=== PATIENT | female | born 1990 | race Caucasian/White ===

== ENCOUNTER 2017-02-14 16:07 | Emergency (ER) | payer OTHER ==
[2017-02-14 16:12] VITALS: BP 119/78; PULSE 58; RESP 16; TEMP 97.7; O2SAT 97
--- NOTE | 2017-02-14 16:47 | EDPHY ---
H & P Stated Complaint: Fell while rock clinmbing, laceration to back of head. Time Seen by Provider: 02/14/17 16:46 HPI/ROS: HPI: This is a 26-year-old female presents with Chief Complaint: Fell while rock climbing, laceration to back of head. Location: back of head Quality: Cut Duration: 3-5 hours ago Signs and Symptoms: No LOC, no neck pain, No bleeding, no radiation, no numbness, no weakness, no tingling, no incontinence, no decreased range of motion Timing: Sudden Severity: [id number] Context: Patient was rock climbing this morning around 9:30 a.m. and slipped on a rock and fell approximately 10 feet onto the ground hitting her head on the dirt. She was tethered and the rope broke her fall but was slack. She denies LOC/neck pain/chest pain/abdominal pain/dizziness/nausea/vomiting. Tetanus up-to-date per patient report. She drove herself home from a rock climbing and then realized that she probably needed stitches so then drove herself to the emergency room. Modifying Factors: None Comment: ROS: see HPI Constitutional: No fever, no chills, no weight loss Eyes: No blurred vision Respiratory: No shortness of breath, no cough Cardiovascular: No chest pain Gastrointestinal: No nausea, no vomiting no diarrhea Genitourinary: No dysuria Extremities: No myalgias Neurologic: No weakness, no numbness Skin: No rashes Hematologic: No bruising, no bleeding MEDICAL/SURGICAL/SOCIAL HISTORY: Medical history: Generally healthy. Does not take any regular medications. Surgical history: Denies Social history: Employed CONSTITUTIONAL: Well-developed well-nourished adult white female, awake and alert, no obvious distress HEENT: 1.5 cm superficial linear simple laceration occipital scalp area, normocephalic, PERRL, EOMI. no globe entrapment, no raccoon eyes. no [place] signs.Tympanic membranes clear. No tympanic membrane rupture. Nares patent; no septal hematoma. Oropharynx clear, no exudate and moist pink mucosa. No malocclusion. no dental trauma. Airway patent. No lymphadenopathy. NECK: supple, no midline tenderness, flexion 45 degrees, extension 45 degrees, right and left lateral flexion 45 degrees. No meningismus. Cardiovascular: Normal S1/S2, regular rate, regular rhythm, without murmur rub or gallop. PULMONARY/CHEST: Symmetrical and nontender. no crepitus. Clear to auscultation bilaterally. Good air movement. No accessory muscle usage. ABDOMEN: Soft, nondistended, nontender, no ecchymosis, no rebound, no guarding , no peritoneal signs, no masses or organomegaly. No CVAT. PELVIC: no pain with rocking; bilateral hips flexion 125 degrees, extension 30 degrees, with no pain internal rotation and no pain external rotation. BACK: No midline tenderness, no paraspinous spasm, deep tendon reflexes 2/2, no pain with straight leg raise EXTREMITIES: 2/2 pulses, no deformities, no clubbing, no cyanosis or edema. NEUROLOGICAL: no focal neuro deficits. GCS 15. SKIN: Warm and dry, no erythema. no rash. Good capillary refill. Source: Patient Exam Limitations: No limitations - Personal History Current Tetanus Diphtheria and Acellular Pertussis (TDAP): Yes - Medical/Surgical History Hx Asthma: No Hx Chronic Respiratory Disease: No Hx Diabetes: No Hx Cardiac Disease: No Hx Renal Disease: No Hx Cirrhosis: No Hx Alcoholism: No Hx HIV/AIDS: No Hx Splenectomy or Spleen Trauma: No Other PMH: Denies - Social History Smoking Status: Never smoked Constitutional: Initial Vital Signs Temperature (C) 36.5 C 02/14/17 16:09 Heart Rate 58 L 02/14/17 16:09 Respiratory Rate 16 02/14/17 16:09 Blood Pressure 119/78 02/14/17 16:09 O2 Sat (%) 97 02/14/17 16:09 O2 Delivery Mode Room Air Allergies/Adverse Reactions: No Known Allergies Allergy (Unverified 02/14/17 16:12) Medical Decision Making Procedures: Procedure: Laceration repair. Verbal consent was obtained from the patient. The 1.5 cm simple superficial linear laceration on the back of scalp was anesthetized in the usual fashion. The wound was irrigated, draped and explored to its base with a gloved finger. There were no deep structures involved. No foreign bodies were identified. The wound was repaired with # 3, jose. Good hemostasis was achieved and patient tolerated procedure well. The procedure was performed by myself. ED Course/Re-evaluation: No signs of neurovascular compromise/tenting of skin/compartment syndrome/ extremities and joints examined above and below area of concern and are neurovascularly intact. Wound care and laceration repair ordered Tetanus up-to-date No LOC. No indication for head CT scan imaging. Simple laceration was closed with 3 jose Verbal and written wound care instructions were provided to the patient. Differential Diagnosis: Head injury including but not limited to concussion, skull fracture, intraparenchymal contusion, subarachnoid, subdural and epidural hematoma. Departure - Departure Disposition: Home, Routine, Self-Care Clinical Impression: Occipital scalp laceration Qualifiers: Encounter type: initial encounter Qualified Code(s): S01.01XA - Laceration without foreign body of scalp, initial encounter Condition: Good Instructions: Staple Care (ED), Facial Laceration (ED) Additional Instructions: Keep the wound dry for 48 hours. After 48 hours, you may get your laceration and jose wet; wash the site daily with mild soap and water; then pat dry. Take ibuprofen 600-800 mg every 6-8 hours with food as needed for pain and headache. Apply ice for 30 minutes at a time; 2-3 times per day for the next 1-2 days. [place] need to be removed in 7 days. You may return to the emergency room to have this procedure performed. Please monitor for signs and symptoms of concussion. Referrals: [facility],. [Clinic] - As per Instructions
== END 2017-02-14 17:09 | disposition home or self-care (01) ==
PROC: 0HQ0XZZ Repair Scalp Skin, External Approach (ICD-10-PCS; principal; 2017-02-14)
DX: S01.01XA Laceration without foreign body of scalp, initial encounter (principal); W18.39XA Other fall on same level, initial encounter; Y99.8 Other external cause status; Y93.31 Activity, mountain climbing, rock climbing and wall climbing